=== PATIENT | male | born 1980 | race African-American/Black ===

== ENCOUNTER 2017-10-30 12:16 | Emergency (ER) | payer BC, MEDICAID ==
[~2017-10-30] VITALS: Ht 188 cm; Wt 73.0 kg
[2017-10-30 12:51] VITALS: BP 143/93
== END 2017-10-30 13:51 | disposition home or self-care (01) ==
LOC: ED 13:30
DX: G24.3 Spasmodic torticollis (principal)
CPT/HCPCS: 99283

== ENCOUNTER 2017-11-19 17:15 | Emergency (ER) | payer BC ==
[~2017-11-19] VITALS: Ht 188 cm; Wt 75.2 kg
[2017-11-19 17:18] VITALS: BP 131/84
== END 2017-11-19 17:56 | disposition home or self-care (01) ==
LOC: ED 17:45
DX: K02.9 Dental caries, unspecified (principal); F17.200 Nicotine dependence, unspecified, uncomplicated
CPT/HCPCS: 99283

== ENCOUNTER 2017-11-21 13:52 | Emergency (ER) | payer BC ==
[~2017-11-21] VITALS: Ht 188 cm; Wt 71.1 kg
[2017-11-21] MEDS ORDERED: DORZ10DR7 EACHEYE (14:57)
[2017-11-21] MEDS ORDERED: DIFL5DRO EACHEYE (15:00)
[2017-11-21] MEDS ORDERED: KETO5DRO EACHEYE (15:00)
[2017-11-21] MEDS ORDERED: HYDROmorphone 1 MG/ML, 1ML IM ONE (15:30)
[2017-11-21] MEDS ORDERED: KETOROLAC 60 MG/2 ML IM ONE (15:30)
[2017-11-21] MEDS ORDERED: HYDROmorphone 2 MG/ML, 1ML ONE (15:37)
[2017-11-21] MEDS ORDERED: KETOROLAC 30 MG/1 ML ONE (15:37)
[2017-11-21 16:11] VITALS: BP 125/76
== END 2017-11-21 16:14 | disposition home or self-care (01) ==
LOC: ED 16:10
DX: K08.89 Other specified disorders of teeth and supporting structures (principal); R51 Headache; R20.0 Anesthesia of skin; F17.200 Nicotine dependence, unspecified, uncomplicated
CPT/HCPCS: 96372; 99284; J1170; J1885

== ENCOUNTER 2018-12-05 00:30 | Emergency (ER) | payer BC, MEDICAID ==
[~2018-12-05] VITALS: Ht 188 cm; Wt 74.4 kg
[~2018-12-05 00:30] MED LIST: DIFL5DRO EACHEYE; DORZ10DR7 EACHEYE; KETO5DRO EACHEYE
[2018-12-05 00:32] VITALS: BP 145/87
[2018-12-05] MEDS ORDERED: CYCLOBENZAPRINE 10 MG TABLET PO ONE (01:30)
[2018-12-05] MEDS ORDERED: KETOROLAC 30 MG/1 ML IM ONE (01:30)
[2018-12-05] MEDS ORDERED: CYCLOBENZAPRINE 10 MG TABLET ONE (01:44)
[2018-12-05] MEDS ORDERED: KETOROLAC 30 MG/1 ML ONE (01:44)
== END 2018-12-05 02:00 | disposition home or self-care (01) ==
LOC: ED 01:58
DX: S29.011A Strain of muscle and tendon of front wall of thorax, initial encounter (principal); F17.200 Nicotine dependence, unspecified, uncomplicated; X58.XXXA Exposure to other specified factors, initial encounter; Y93.89 Activity, other specified; Y92.89 Other specified places as the place of occurrence of the external cause; Y99.8 Other external cause status
CPT/HCPCS: 93005; 96372; 99283; J1885

== ENCOUNTER 2019-07-04 19:31 | Emergency (ER) | payer MEDICAID ==
[~2019-07-04] VITALS: Ht 188 cm; Wt 72.9 kg
[2019-07-04 19:36] VITALS: BP 158/96
== END 2019-07-04 20:27 | disposition home or self-care (01) ==
LOC: ED 20:22
DX: I10 Essential (primary) hypertension (principal)
CPT/HCPCS: 99283

== ENCOUNTER 2019-10-20 22:46 | Emergency (ER) | payer MEDICAID ==
[~2019-10-20] VITALS: Ht 188 cm; Wt 76.3 kg
--- NOTE | 2019-10-20 23:03 | NUR ---
pt to room from lobby
[2019-10-21] MEDS ORDERED: ASPIRIN 81 MG TABLET CHEW PO ONE
--- NOTE | 2019-10-21 00:29 | NUR ---
AMBULATORY TO RESTROOM C STEADY GAIT.
[2019-10-21 00:33] LABS: BASOPHILS # (AUTO) 0.04 x10^3/uL (0-0.1); BASOPHILS % (AUTO) 1 % (0-1); EOSINOPHILS % (AUTO) 1 % (1-7); LYMPHOCYTES # (AUTO) 2.92 x10^3/uL (1-3.4); LYMPHOCYTES % (AUTO) 36 % (22-44); MD NO; MEAN CORPUSCULAR HGB CONC 32.2 g/dL (33.2-36.2); MEAN CORPUSCULAR VOLUME 90.1 fL (81-97); MEAN PLATELET VOLUME 9.9 fL (7.4-10.4); MONOCYTES # (AUTO) 0.66 x10^3/uL (0.2-0.8); MONOCYTES % (AUTO) 8 % (2-9); NEUTROPHILS # (AUTO) 4.47 x10^3/uL (1.8-6.8); NEUTROPHILS % (AUTO) 55 % (42-75); PLATELET COUNT 251 x10^3/uL (130-400); RED CELL DISTRIBUTION WIDTH 17.1 % (9.4-14.8)
[2019-10-21 00:41] LABS: ALBUMIN 3.9 g/dL (3.4-5.0); ANION GAP 6 mmol/L (5-15); CALCIUM 8.7 mg/dL (8.5-10.1); CHLORIDE 107 mmol/L (98-107)
[2019-10-21 00:48] LABS: ALANINE AMINOTRANSFERASE 31 U/L (12-78); ALKALINE PHOSPHATASE 54 U/L (45-117); BILIRUBIN,TOTAL 0.4 mg/dL (0.2-1.0); CREATININE 1.03 mg/dL (0.7-1.3); TOTAL PROTEIN 7.6 g/dL (6.4-8.2); TROPONIN I < 0.015 ng/mL (0.000-0.045)
[2019-10-21] MEDS ORDERED: ASPIRIN 81 MG TABLET CHEW ONE (01:08)
[2019-10-21] MEDS ORDERED: KETOROLAC 30 MG/1 ML ONE (01:08)
[2019-10-21 01:11] VITALS: BP 168/87
[2019-10-21] MEDS ORDERED: KETOROLAC 30 MG/1 ML IM ONE (01:30)
== END 2019-10-21 01:22 | disposition home or self-care (01) ==
LOC: ED 10-21 00:55
DX: R07.89 Other chest pain (principal); I10 Essential (primary) hypertension; F17.210 Nicotine dependence, cigarettes, uncomplicated; F12.90 Cannabis use, unspecified, uncomplicated
CPT/HCPCS: 36415; 71046; 80053; 84484; 85025; 93005; 96372; 99284; J1885